=== PATIENT | male | born 1960 | race Caucasian/White ===

== ENCOUNTER 2018-08-10 16:18 | Emergency (ER) | payer OTHER ==
[~2018-08-10] VITALS: Ht 188 cm; Wt 100.2 kg
--- NOTE | 2018-08-10 16:36 | PHYS DOC ---
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 No specific weakness in an arm or a leg. Just a generalized weakness overall. No chest pain or palpitations. Reports some blurring of the vision. This is all doing better as he has cooled down. Symptoms started approximately half an hour to an hour ago.[] Review of Systems Review of Systems Constitutional: Denies fever or chills [] Eyes: Denies change in visual acuity, redness, or eye pain [] HENT: Denies nasal congestion or sore throat [] Respiratory: Denies cough or shortness of breath [] Cardiovascular: No chest pain or palpitations[] GI: Denies abdominal pain, nausea, vomiting, bloody stools or diarrhea [] : Denies dysuria or hematuria [] Musculoskeletal: Denies back pain or joint pain [] Integument: Denies rash or skin lesions [] Neurologic: Denies headache, focal weakness or sensory changes [] Endocrine: Denies polyuria or polydipsia [] All other systems were reviewed and found to be within normal limits, except as documented in this note. Allergies Allergies Allergies Coded Allergies Type Severity Reaction Last Updated Verified No Known Drug Allergies 05/20/16 No Physical Exam Physical Exam Constitutional: Well developed, well nourished, no acute distress, non-toxic appearance. [] HENT: Normocephalic, atraumatic, bilateral external ears normal, oropharynx moist, no oral exudates, nose normal. [] Eyes: PERRLA, EOMI, conjunctiva normal, no discharge. [] Neck: Normal range of motion, no tenderness, supple, no stridor. [] Cardiovascular:Heart rate regular rhythm, no murmur [] Lungs & Thorax: Bilateral breath sounds clear to auscultation [] Abdomen: Bowel sounds normal, soft, no tenderness, no masses, no pulsatile masses. [] Skin: Warm, dry, no erythema, no rash. [] Back: No tenderness, no CVA tenderness. [] Extremities: No tenderness, no cyanosis, no clubbing, ROM intact, no edema. [] Neurologic: Alert and oriented X 3, normal motor function, normal sensory function, no focal deficits noted. NIH stroke scale of 0[] Psychologic: Affect normal, judgement normal, mood normal. [] Current Patient Data Lab Results Laboratory Tests Test 08/10/18 16:29 Glucose (Fingerstick) 89 mg/dL (70-99) EKG EKG EKG shows a sinus rhythm at 82 bpm, left axis, QTC of 456 ms, no ST elevations. No acute changes when compared with EKG of 05-20-2016. Interpreted by me at 1643[] Radiology/Procedures Radiology/Procedures CT HEAD WITHOUT CONTRAST History: ALTERED MENTAL STATUS, CLAMINESS,DIZZINESS, HYPERTENSION, BLURRY VISION ONSET TODAY Comparison: CT head without contrast, December 11, 2011. Procedure: Axial images are obtained of the head from the skull base through the vertex without IV contrast. Findings: The ventricles and sulci are normal for the patient's age. No mass-effect, midline shift, hemorrhage, extra-axial fluid collection, or obvious acute infarction is identified. Basilar cisterns are patent. Bone windows demonstrate no acute calvarial abnormality. The visualized paranasal sinuses are clear. Mastoid air cells are well aerated. IMPRESSION: No acute intracranial abnormality. PROCEDURE: PORTABLE CHEST 1V PORTABLE CHEST 1V Clinical indications: Altered mental status, CLAMINESS, BLURRY VISION, DIZZINESS ONSET TODAY COMPARISON: No previous chest x-ray available. Findings: No acute lung infiltrate or pleural effusion or pulmonary edema or lung mass or pneumothorax is seen. The heart size, pulmonary vasculature, mediastinum and both mingo are unremarkable. Impression: No acute radiographic abnormality is seen.[] Course & Med Decision Making Course & Med Decision Making Pertinent Labs and Imaging studies reviewed. (See chart for details) ED course: Patient arrived, was placed in bed, and tolerated exam well. NIH stroke scale was performed and found to be 0 however there was still concern for possibility of this being a neurologic event versus heat illness so IV fluids as well as imaging were obtained. He was able to be transported to and from [place] with any complications. Patient was feeling better with IV fluids. Patient care was endorsed to the oncoming physician at 1800 with laboratory testing still in progress.[] Dragon Disclaimer Dragon Disclaimer This electronic medical record was generated, in whole or in part, using a voice recognition dictation system. HARMEET QUINTEROS DO Aug 10, 2018 16:36
[2018-08-10] MEDS ORDERED: IV NORMAL SALINE 1,000ML 1,000 ML IV ONE (16:45)
[2018-08-10 16:46] LABS: BASO % 0 % (0-3); EOS # 0.1 x10^3/uL (0.0-0.7); EOS % 2 % (0-3); HEMATOCRIT 39.4 % (39.0-53.0); HEMOGLOBIN 13.3 g/dL (13.0-17.5); LYMPH % 29 % (24-48); MEAN CORPUSCULAR HEMOGLOBIN 31 pg (25-35); MEAN CORPUSCULAR HGB CONC 34 g/dL (31-37); MEAN CORPUSCULAR VOLUME 91 fL (79-100); MONO # 0.7 x10^3/uL (0.0-1.1); MONO % 10 % (0-9); NEUT # 4.1 x10^3uL (1.8-7.7); NEUT % 59 % (31-73); PLATELET COUNT 285 x10^3/uL (140-400); RED BLOOD COUNT 4.33 x10^6/uL (4.30-5.70); RED CELL DISTRIBUTION WIDTH 13.8 % (11.5-14.5); WHITE BLOOD COUNT 6.9 x10^3/uL (4.0-11.0)
--- NOTE | 2018-08-10 16:56 | RAD ---
PQRS Compliance Statement: One or more of the following individualized dose reduction techniques were utilized for this examination: 1. Automated exposure control 2. Adjustment of the mA and/or kV according to patient size 3. Use of iterative reconstruction technique CT HEAD WITHOUT CONTRAST History: ALTERED MENTAL STATUS, CLAMINESS,DIZZINESS, HYPERTENSION, BLURRY VISION ONSET TODAY Comparison: CT head without contrast, December 11, 2011. Procedure: Axial images are obtained of the head from the skull base through the vertex without IV contrast. Findings: The ventricles and sulci are normal for the patient's age. No mass-effect, midline shift, hemorrhage, extra-axial fluid collection, or obvious acute infarction is identified. Basilar cisterns are patent. Bone windows demonstrate no acute calvarial abnormality. The visualized paranasal sinuses are clear. Mastoid air cells are well aerated. IMPRESSION: No acute intracranial abnormality. Electronically signed by: Angel Darden MD (08/10/2018 4:53 PM) [id number]
[2018-08-10 16:57] LABS: ALBUMIN/GLOBULIN RATIO 1.3 (1.0-1.7); CALCIUM 8.9 mg/dL (8.5-10.1); CREATININE 1.3 mg/dL (0.7-1.3); GFR 56.7; MAGNESIUM 1.8 mg/dL (1.8-2.4); POTASSIUM 3.8 mmol/L (3.5-5.1); TOTAL BILIRUBIN 0.5 mg/dL (0.2-1.0); TOTAL PROTEIN 7.2 g/dL (6.4-8.2)
--- NOTE | 2018-08-10 17:03 | RAD ---
PORTABLE CHEST 1V Clinical indications: Altered mental status, CLAMINESS, BLURRY VISION, DIZZINESS ONSET TODAY COMPARISON: No previous chest x-ray available. Findings: No acute lung infiltrate or pleural effusion or pulmonary edema or lung mass or pneumothorax is seen. The heart size, pulmonary vasculature, mediastinum and both mingo are unremarkable. Impression: No acute radiographic abnormality is seen. Electronically signed by: Bautista Cochran MD (08/10/2018 5:01 PM) [place] [id number]
--- NOTE | 2018-08-10 17:54 | EKG ---
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 Electronically Signed On 08-16-2018 11:56:55 CDT by Maikel Corrigan
[2018-08-10 18:56] LABS: BACTERIA,URINE 0 /HPF (0-FEW); BILIRUBIN,URINE NEG (NEG); CLARITY,URINE CLEAR; COLOR,URINE AMBER; GLUCOSE,URINE NEG (NEG); NITRITE,URINE NEG (NEG); RBC,URINE 0 /HPF (0-2); SQUAMOUS EPITHELIAL CELL,UR FEW /LPF; UROBILINOGEN,URINE 0.2 mg/dL (0.2 mg/dL); WBC,URINE 0 /HPF (0-4)
[2018-08-10 20:27] VITALS: BP 136/86
== END 2018-08-10 20:26 | disposition home or self-care (01) ==
LOC: ER 16:18
DX: E86.0 Dehydration (principal); I10 Essential (primary) hypertension
CPT/HCPCS: 36415; 70450; 71045; 80053; 81001; 82550; 82947; 83735; 83880; 84484; 85025; 85610; 93005; 99285; J7030

== ENCOUNTER → 2019-01-03 | Outpatient (CLI) | payer OTHER ==
[~2019-01-03] MED LIST: IOHEXOL 240 MG/ML 50ML VIAL. ONE; IOHEXOL 240 MG/ML 50ML VIAL. PO ONE; IOHEXOL 300 MG/ML 75 ML VIAL. IV ONE
--- NOTE | 2019-01-03 14:38 | RAD ---
CT ABD PELV W/ORAL IV CONTRAST Indication: Right lower quadrant pain for 3 days Exposure: One or more of the following individualized dose reduction techniques were utilized for this examination: 1. Automated exposure control 2. Adjustment of the mA and/or kV according to patient size 3. Use of iterative reconstruction technique. Technique: Intravenous contrast was given. Oral contrast was given. COMPARISON: None FINDINGS: Mild linear atelectasis or fibrosis in lung bases. 1 cm low-density lesion in the anterior liver. There are numerous additional subcentimeter hypodense lesions throughout the liver. The larger lesion measures cystic density but the other lesions are too small to characterize. Benign etiology would be most commonly unless there is clinical risk factors to suggest other etiology. Spleen unremarkable. Pancreas unremarkable. No evidence of adrenal mass. Kidneys demonstrate symmetric enhancement without hydronephrosis. Low-density lesion at the lower pole of the right kidney measures 17 mm diameter. This measures slightly greater than cystic density at 24 Hounsfield units. No calcified gallstone. Aorta is ectatic an mildly calcified but nonaneurysmal. No significant lymph node enlargement. Mild wall thickening of the duodenum and segments of small bowel is likely due to nondistention. Nondistended colon demonstrates no evidence of acute colitis. The appendix is mildly thick walled, total width measuring 9 mm. However, there is not much hypervascularity or periappendiceal inflammatory stranding. No significant pneumoperitoneum or ascites. Urinary bladder appears unremarkable. Degenerative changes at the lumbar spine. Transitional anatomy at the lumbosacral junction. Degenerative changes at the hips. IMPRESSION: 1. Mild appendiceal wall thickening, but without periappendiceal inflammatory fluid or stranding. Findings could indicate possible mild or early appendicitis. Surgical consult and/or short-term imaging follow-up could be of benefit depending on clinical management. Findings were discussed by telephone with Dr. Dillon's nurse, Frank, at 2:30 PM on 01/03/2019. 2. Numerous small hepatic lesions, most are too small to characterize. These most likely benign unless clinical risk factors suggest otherwise. 3. Small lesion at the lower pole right kidney measures greater than cystic density, could represent a hemorrhagic cyst versus other etiology. Follow-up with outpatient renal ultrasound recommended. 4. Mild segments of duodenal and small bowel wall thickening, may just be due to nondistention. Electronically signed by: Micah Cope MD (01/03/2019 2:34 PM) [facility]
== END | disposition home or self-care (01) ==
LOC: CT 12:45
PROVIDERS: ATTEND Physician Assistant
DX: K76.89 Other specified diseases of liver (principal); I77.811 Abdominal aortic ectasia; I70.0 Atherosclerosis of aorta; R19.7 Diarrhea, unspecified
CPT/HCPCS: 74177; Q9966; Q9967

== ENCOUNTER → 2020-08-27 | Day surgery (SDC) | payer OTHER ==
[~2020-08-27] MED LIST changes: +ALPR1TAB6 PO; +AMLO-187 PO; +ESCITALOPRAM OX10 MG PO; -IOHEXOL 240 MG/ML 50ML VIAL. ONE; -IOHEXOL 240 MG/ML 50ML VIAL. PO ONE; -IOHEXOL 300 MG/ML 75 ML VIAL. IV ONE; +IPRATRPIUM/ALBUTEROL 0.5/2.5MG 3 ML NEBU. NEB PRN; +IV RINGERS SOLUTION,LACTATED 1,000 ML IV SCH; +LIDOCAINE 1%/EPI 1:100,000 20 ML VIAL. INJ ONE; +LIDOCAINE 1%/EPI 1:100,000 20 ML VIAL. ONE; +MELO15TA23 PO; +MIDAZOLAM HCL PF 2 MG/2 ML VIAL. IV ONE; +NEOMY/BACITR/POLYMYXIN OINT PACKET. TP ONE; +ONDANSETRON PF 4 MG/2 ML VIAL. IV PRN
--- NOTE | 2020-08-27 08:15 | PDOC4 ---
Operative Report DATE August 272020 at 812 Preop Diagnosis Bilateral shoulder masses Post-op Diagnosis Same Operation Performed Excision of bilateral shoulder masses Patient is a 59-year-old gentleman has a history of basal cell carcinomas has had several moved in the past. Now has 2 lesions one on the right shoulder one on the left shoulder. The procedure of excision was explained to the patient detail risk-benefit were also discussed occluding bleeding infection alternatives to this procedure were also discussed the patient who seemed to understand and gave both verbal and written consent to have the procedure performed. Patient was taken to the minors room placed in the supine position the area on the right shoulder was prepped and draped in usual sterile fashion using ChloraPrep. Area around the lesion was injected with quarter percent Marcaine with epinephrine elliptical incision was made with 15 blade scalpel and lesion was excised sharply and sent for pathology size of the lesion 2 cm x 2 cm size of the incision 4 cm. The wound was then closed in 2 layers of deep layer running 3-0 Vicryl and the skin was reapproximated with 4-0 subcuticular Monocryl Mastisol Steri-Strips and island dressing were applied. Tensions were then turned to the left shoulder. Area was prepped and draped in usual sterile fashion using ChloraPrep the area around the mass was injected with 1% lidocaine with epinephrine once this was anesthetized an elliptical incision was performed with a 15 blade scalpel is carried down through subcutaneous tissues elec trocautery was used for hemostasis and the mass was sharply excised and sent for pathology mass size was 3 cm x 3 cm and the incision length 6 cm. Wound was closed in 2 layers deep layer running 3-0 Vicryl and the skin was reapproximated for subcuticular Monocryl Mastisol Steri-Strips and island dressing were applied. Patient tolerated procedure well was discharged home in stable condition Surgeon Antoine ANESTHESIA PROPOSED: LOCAL Blood Loss 10 mL Specimen 2 specimens right shoulder lesion left shoulder lesion Complications None IZA HARMON MD August 27, 2020 08:15
--- NOTE | 2020-08-27 08:17 | DISCH ---
DISCHARGE INSTRUCTIONS-DC Condition on Discharge Condition on Discharge: Stable Activity after Discharge Activity Instructions for Disc: Activity as tolerated Other activity instructions: May shower in 24 hours Diet after Discharge Diet after Discharge: Regular Wound/Incision Care Other wound/incision instructi: May shower 24 hours Contacting the after DC Call your doctor for: If your condition worsens Follow-Up Follow up with: Dr. Harmon in 2 weeks IZA HARMON MD August 27, 2020 08:17
[2020-08-27 08:19] VITALS: BP 116/68
--- NOTE | 2020-09-01 18:07 | PATHOLOGY ---
[facility] Accession Number: [id number] . 01 Material submitted: . PART A: shoulder - RIGHT SHOULDER LESION. Modifiers: right PART B: shoulder - LEFT SHOULDER LESION. Modifiers: left . 01 Clinical history: . BILATERAL SHOULDER LESIONS EXCISION SKIN LESION . 02 Diagnosis: A. Skin and subcutaneous tissue, "right shoulder lesion", excision: - BASAL CELL CARCINOMA, NODULOCYSTIC SUBTYPE; MARGINS FREE OF CARCINOMA. . B. Skin and subcutaneous tissue, "left shoulder lesion", excision: - BASAL CELL CARCINOMA, INFILTRATIVE SUBTYPE, ULCERATED; MARGINS FREE OF CARCINOMA. (CLW:[facility]; 08/29/2020) [facility] 09/01/2020 1707 Local . 02 Comment: Deeper sections are performed. Clinical correlation is recommended. (CLW:[facility]; 08/29/2020) . 02 Electronically signed: . Elsi Garcia MD, Pathologist NPI- [id number] . 01 Gross description: . A. The specimen is received in formalin, labeled "Delvis Matzeder, right shoulder lesion". Received is an ellipse of skin measuring 4.3 x 1.8 x 1.4 cm in greatest dimensions. The epidermal surface displays a poorly circumscribed, raised and pale ojeda lesion measuring 1.3 x 1.1 x 0.3 cm. The surgical margin is inked. The specimen is sectioned into 13 pieces and entirely submitted in cassettes A1 through A7, with the bisected tips placed in cassette A7. . B. The specimen is received in formalin, labeled "Delvis Matzeder, left shoulder lesion". Received is an ellipse of skin measuring 7.4 x 2.9 x 0.9 cm in greatest dimensions. The epidermal surface displays a well-circumscribed, irregular in contour, partially crusted and pale ojeda to light brown lesion measuring 2.3 x 1.5 cm. The surgical margin is inked. The specimen is submitted representatively as follows: . B1-B5 entire lesion B6 bisected tips. ([facility]; 08/28/2020) QAC/QA 08/28/2020 1109 Local . 02 Pathologist provided ICD-10: C44.612, C44.619 . 02 CPT . 456731, 443620 Specimen Comment: A courtesy copy of this report has been sent to [phone] Specimen Comment: Report sent to Performed at: [address] [id number] MD Jonathon Hamilton MD Phone: [phone] Performed at: 02 [facility] [id number] [place] [id number] MD Elsi Garcia MD Phone: [phone]
== END | disposition home or self-care (01) ==
LOC: SURG 06:24
PROVIDERS: ATTEND Surgery
DX: R22.33 Localized swelling, mass and lump, upper limb, bilateral (principal); C44.612 Basal cell carcinoma of skin of right upper limb, including shoulder; C44.619 Basal cell carcinoma of skin of left upper limb, including shoulder; I10 Essential (primary) hypertension; Z89.021 Acquired absence of right finger(s); Z79.899 Other long term (current) drug therapy
CPT/HCPCS: 88305